=== PATIENT | female | born 1975 | race Caucasian/White ===

== ENCOUNTER → 2017-09-01 08:53 | Outpatient (CLI) | payer OTHER, SELFPAY ==
--- NOTE | 2017-09-01 08:58 | MM_ITS ---
MM Dig screening mamm BI w/CAD CAD Screening COMPARISON: Digital mammograms 06/05/2012 INDICATION: There is no personal or family history of breast cancer TECHNIQUE: Standard CC and MLO images were obtained. R2 CAD reviewed. FINDINGS: There is a markedly dense and heterogenic parenchymal pattern definitely lessening the sensitivity of mammography. There is a mole marker lower inner quadrant right breast. There are 2 possible asymmetric densities outer quadrant right breast best seen on the cc view. There are few faint microcalcifications central portion right breast difficult to adequately evaluate due to the markedly dense parenchymal pattern. There are no obvious suspicious microcalcifications in either breast. IMPRESSION: 1. Possible asymmetric densities right breast and recommend the patient return for ultrasound evaluation 2. Somewhat indeterminate microcalcifications left breast and recommend patient return for spot compression magnification views of the central portion left breast BI-RADS Category: 0 Need Additional Imaging Evaluaiton RECOMMENDED FOLLOW-UP: IMM - IMMEDIATE FOLLOW-UP RECOMMENDED (A letter has been sent to the patient regarding results of the study.)
== END ==
PROVIDERS: Family Provider Internal Medicine Adolescent Medicine; PCP Internal Medicine Adolescent Medicine; Visit Provider Obstetrics & Gynecology Gynecology
DX: Z12.31 Encounter for screening mammogram for malignant neoplasm of breast (principal)
CPT/HCPCS: 77067

== ENCOUNTER → 2017-09-15 14:20 | Outpatient (CLI) | payer OTHER, SELFPAY ==
--- NOTE | 2017-09-15 | US_ITS ---
MM Dig mamm BI DX w/CAD, US breast RT complete, US breast LT complete COMPARISON: 120 01/22 and 06/05/2012 INDICATION: Follow-up abnormal mammogram ORDERING PHYSICIAN: Nelsy Amaya PATIENT AGE: 42 years TECHNIQUE: Bilateral problem-solving views performed along with bilateral breast ultrasound FINDINGS: Dense fibroglandular tissue is present which decreases sensitivity of mammography. Right mammogram: 8 mm nodular opacity in the outer aspect of the right breast seen best on the cc view.. This has a benign appearance and may been present dating back to 06/05/2012. Right breast ultrasound: There are multiple cysts present including a 4 mm cyst at 12:00, 9 mm cyst at 1:00, 5 mm cyst at 2:00, 7 mm cyst at 6:00, and a complex cystic lesion at 11:00 measuring 1 x 0.5 cm. No suspicious nodules are evident. The 11:00 nodule may correspond to the mammographic abnormality. Left mammogram: There are faint calcifications in the central and outer aspect of the left breast probably benign. Left breast ultrasound: 10 x 9 mm cyst at 12:00, 5 mm cyst at 2:00, 5 mm cyst at 3:00, 11 mm cyst at 5:00, 6 mm cyst at 10:00. No suspicious nodules evident. IMPRESSION: Probably benign findings regarding the asymmetric density in the upper outer right breast and the left breast calcifications BI-RADS Category: 3 Benign Finding Short Term Follow-up RECOMMENDED FOLLOW-UP: 6M - 6 MONTH FOLLOW-UP Recommend right breast ultrasound and right mammogram and left mammogram in 6 months. (A letter has been sent to the patient regarding results of the study.)
== END ==
PROVIDERS: PCP Internal Medicine Adolescent Medicine; Visit Provider Obstetrics & Gynecology Gynecology
DX: R92.8 Other abnormal and inconclusive findings on diagnostic imaging of breast (principal)
CPT/HCPCS: 76641; 77065; 77066

== ENCOUNTER → 2018-09-21 12:47 | Outpatient (CLI) | payer OTHER, SELFPAY ==
--- NOTE | 2018-09-21 12:53 | MM_ITS ---
MM Dig mamm BI DX w/CAD COMPARISON: Digital mammograms with CAD 09/01/2017 and additional views right breast 09/15/2017 and ultrasound of both breast to 2017 and 09/21/2018 INDICATION: There is no personal or family history of breast cancer. TECHNIQUE: Standard MLO and CC views were obtained along with multiple spot compression CC and MLO views and 90 degree lateral view left breast. FINDINGS: There is a diffusely dense and markedly heterogenic parenchymal pattern definitely lessening the sensitivity of mammography. There is a possible new asymmetric density left breast 6:00 position however ultrasound performed same date showed somewhat lobulated cystic lesion at this location with no suspicious characteristics. There is a mole marker right breast. There are no suspicious microcalcifications. Ultrasound of both breasts performed same date showed multiple cystic lesions and solid lesions all with benign findings in each breast. IMPRESSION: Markedly dense and heterogenic parenchymal pattern findings consistent with prominent fibrocystic change of each breast and with no suspicious lesion seen BI-RADS Category: 2 Benign Finding(s) RECOMMENDED FOLLOW-UP: 1YR - 1 YEAR FOLLOW-UP (A letter has been sent to the patient regarding results of the study.)
--- NOTE | 2018-09-21 12:54 | US_ITS ---
US breast LT complete COMPARISON: Ultrasound right breast same date and ultrasound of both breasts to 2017 HISTORY: Known history of multiple cysts in both breasts no current complaints and no current palpable lesions TECHNIQUE: Ultrasound survey of the entire breast FINDINGS: There are multiple primarily cystic and benign-appearing lesions in the breast. There is a dominant benign-appearing cystic lesion at the 12:00 position near the nipple measuring 1.4 x 0.6 x 1.0 cm. There is an oval hypoechoic solid lesion at the 2:00 position near the nipple measuring 0.9 x 0.3 x 0.6 cm with homogeneous echogenicity, the appearance suggesting a fibroadenoma. There is a similar homogeneous solid lesion at the 3:00 position near the nipple measuring 0.9 x 0.9 x 0.4 cm likely fibroadenomas well. There is a complex somewhat lobulated cystic lesion at the 6:00 position near the nipple which likely accounts for the new asymmetric density on the mammogram. It shows good acoustic enhancement. Review of the previous ultrasound June 2018 showed multiple cystic and solid lesions as well. IMPRESSION: Basically stable ultrasound study with multiple benign-appearing cystic and solid lesions and certainly compatible with the mammogram findings and recommend the patient continue with yearly screening mammography
--- NOTE | 2018-09-21 12:54 | US_ITS ---
US breast RT complete COMPARISON: Ultrasound right breast 09/15/2017 HISTORY: Known prominent fibrocystic changes in both breast on mammogram findings no current complaints and no current palpable lesions TECHNIQUE: Ultrasound survey of the entire breast FINDINGS: There is an oval solid lesion at 12:00 position near the nipple with homogeneous internal echogenicity measuring 0.8 x 0.4 x 0.8 cm with the appearance suggesting a fibroadenoma. There is a hypoechoic oval cystic-appearing lesion at the 1:00 position outer breast measuring 0.9 x 0.3 0.8 cm and likely a cyst with internal debris. There is a small hypoechoic benign-appearing cystic lesion at the 1:00 position are within the nipple measuring 0.4 x 0.4 x 0.3 cm. Oval hypoechoic but solid lesion at the 3:00 position near the nipple measuring 0.7 x 0.8 x 0.6 cm with fairly homogeneous echogenicity and likely fibroadenoma. There is a similar solid hypoechoic lesion at the 6:00 position near the nipple measuring 0.9 x 0.8 x 0.5 cm and consistent with fibroadenomas well. There are several other smaller hypoechoic cystic-appearing lesions. There is no suspicious cystic or solid lesions identified. There is a normal node in the axilla. IMPRESSION: Multiple benign-appearing cystic and solid lesions consistent with patient's fibrocystic changes on mammogram and recommend the patient continue with yearly screening mammography
== END ==
PROVIDERS: PCP Internal Medicine Adolescent Medicine; Visit Provider Obstetrics & Gynecology Gynecology
DX: R92.8 Other abnormal and inconclusive findings on diagnostic imaging of breast (principal)
CPT/HCPCS: 76641; 77066

== ENCOUNTER → 2019-10-28 09:44 | Outpatient (CLI) | payer BC, SELFPAY ==
--- NOTE | 2019-10-28 09:51 | MM_ITS ---
PROCEDURE: MM DIG SCREENING MAMM BI W/CAD Digital Breast Tomosynthesis Included CLINICAL INDICATION: SCREENING There is a history of breast cancer patient's maternal aunt diagnosed after menopause. The patient is currently on control pills. COMPARISON: [facility] MM Dig screening mamm BI w/CAD from 09/01/2017 [facility] MM Dig mamm BI DX w/CAD from 09/15/2017 [facility] MM Dig mamm BI DX w/CAD from 09/21/2018 TECHNIQUE: Standard CC and MLO images and 3D Tomosynthesis was obtained. R2 CAD reviewed. FINDINGS: Diffuse somewhat heterogenic fibroglandular densities are seen in the central portions of both breasts. The findings are bilateral and symmetrical. There is a mole marker right breast. Erasto images were reviewed which are most helpful in this somewhat dense breast parenchyma. There is no new or suspicious lesion in either breast and no suspicious microcalcifications. IMPRESSION: Stable somewhat dense parenchymal pattern with no suspicious lesions seen BI-RAD Category: 1 Negative FOLLOW-UP: 1YR 1 Year Follow-up (A letter has been sent to the patient regarding results of the study.) Dictated by: Dr. Ruslan River MD 10/29/2019 13:[address] Ruslan River MD in [place] 10/29/2019 13:06
== END ==
PROVIDERS: PCP Internal Medicine Adolescent Medicine; Visit Provider Obstetrics & Gynecology Gynecology
DX: Z12.31 Encounter for screening mammogram for malignant neoplasm of breast (principal)
CPT/HCPCS: 77063; 77067

== ENCOUNTER → 2020-10-30 09:46 | Outpatient (CLI) | payer BC, SELFPAY ==
--- NOTE | 2020-10-30 09:51 | MM_ITS ---
PROCEDURE: MM DIG SCREENING MAMM BI W/CAD Digital Breast Tomosynthesis Included CLINICAL INDICATION: SCREENING COMPARISON: MG [facility] MM Dig mamm BI DX w/CAD from 09/15/2017 MG [facility] MM Dig mamm BI DX w/CAD from 09/21/2018 MG MM DIG SCREENING MAMM BI W/CAD from 10/28/2019 TECHNIQUE: Standard CC and MLO images and 3D Tomosynthesis was obtained. R2 CAD reviewed. FINDINGS: The breasts are heterogeneously dense, may obscure small masses. There is focal asymmetric density noted in the right lower central breast, 2 centimeters from the nipple. Focal areas of glandular asymmetry is noted in the left breast without evidence of dominant mass lesions. No suspicious calcification or architectural distortion is noted. Glandular asymmetries are noted, demonstrate no significant interval change compared to prior study. IMPRESSION: Focal asymmetric density in the right lower central breast 2 centimeters from the nipple. BI-RAD Category: 0 Need Additional Imaging Evaluation FOLLOW-UP: Spot compression images and ultrasound of the right breast. (A letter has been sent to the patient regarding results of the study.) Dictated by: Shirley Szymanski 11/05/2020 19:09 Shirley Szymanski in [place] 11/05/2020 19:09
== END ==
PROVIDERS: PCP Internal Medicine Adolescent Medicine; Visit Provider Obstetrics & Gynecology Gynecology
DX: Z12.31 Encounter for screening mammogram for malignant neoplasm of breast (principal)
CPT/HCPCS: 77063; 77067

== ENCOUNTER → 2020-11-20 13:56 | Outpatient (CLI) | payer BC, SELFPAY ==
--- NOTE | 2020-11-20 14:01 | MM_ITS ---
PROCEDURE: MM DIG MAMM DX UNILAT RT CAD Digital Breast Tomosynthesis Included CLINICAL INDICATION: ABN MAMM OF RT BREAST COMPARISON: MG [facility] MM Dig mamm BI DX w/CAD from 09/21/2018 MG MM DIG SCREENING MAMM BI W/CAD from 10/28/2019 MG MM DIG SCREENING MAMM BI W/CAD from 10/30/2020 US US BREAST RT COMPLETE from 11/20/2020 TECHNIQUE: Compression MLO and CC views obtained and 90 degree lateral view as well. FINDINGS: Markedly heterogenic densities are seen in the subareolar region and central portion of the breast as noted previously. However the asymmetric nodular density just deep to the nipple seen on the mammogram 10/30/2020 does not completely press out on the spot CC view and is seen on the 90 degree lateral view as well. Ultrasound exam performed the same date shows multiple hypoechoic cystic-appearing lesions in the subareolar region and central portion of the breast. In particular there appears to be a complex cystic structure with thick internal septations 12 o'clock position near the nipple measuring 0.9 by 0.9 x 0.4 cm which likely corresponds to the asymmetric nodular lesion described on the recent mammogram. In addition there is another dominant hypoechoic and likely cystic lesion with internal debris at the 6 o'clock position near the nipple measuring 1.0 x 0.4 by 0.9 cm. Multiple additional but smaller hypoechoic cystic-appearing lesions are seen in the subareolar region. Density deep to the nipple described on the previous mammogram does not press out on the spot CC and 90 lateral views and in view of the markedly heterogenic parenchymal pattern and multiplicity of hypoechoic complex cystic-appearing lesions on ultrasound I believe the patient should be scheduled for follow-up MRI scan of the breast for additional evaluation. IMPRESSION: Markedly dense and heterogenic and fibrocystic appearing breast parenchyma BI-RAD Category: 0 Need Additional Imaging Evaluation FOLLOW-UP: IMM Immediate Follow-up Recommended MRI scan (A letter has been sent to the patient regarding results of the study.) Dictated by: Dr. Ruslan River MD 11/24/2020 10:37 Dr. Ruslan River MD in [place] 11/24/2020 10:37
--- NOTE | 2020-11-20 14:28 | US_ITS ---
PROCEDURE: US BREAST RT COMPLETE CLINICAL INDICATION: ABNORMAL SCREENING Of the breast is recommended for additional evaluation COMPARISON: US BREASTLT US breast LT complete from 09/21/2018 FINDINGS: See description of ultrasound findings on the mammogram report same date. The combination of mammogram findings and ultrasound findings suggest that the patient would probably benefit from a follow-up MRI scan of the breast for better evaluation. IMPRESSION: Multiple hypoechoic and complex appearing cystic lesions as described on the mammogram report and as mention MRI scan of the breast is recommended for additional evaluation Dictated by: Dr. Ruslan River MD 11/26/2020 19:51 Dr. Ruslan River MD in [place] 11/26/2020 19:51
== END ==
PROVIDERS: PCP Internal Medicine Adolescent Medicine; Visit Provider Obstetrics & Gynecology Gynecology
DX: R92.8 Other abnormal and inconclusive findings on diagnostic imaging of breast (principal)
CPT/HCPCS: 76641; 77061; 77065; G0279